=== PATIENT | female | born 1995 | race Caucasian/White ===

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

== ENCOUNTER 2017-03-23 14:55 | Emergency (ER) | payer OTHER ==
[~2017-03-23] VITALS: Ht 165.1 cm; Wt 74.1 kg
[~2017-03-23 14:55] MED LIST changes: +DIPH25CA65 PO
[2017-03-23 14:58] VITALS: TEMP 36.7; Ht 165.1 cm; Wt 74.1 kg
--- NOTE | 2017-03-23 15:09 | EMERGENCY ROOM VISIT NOTE ---
History Report prepared by Christianne: Shaji Salamanca Under the Supervision of: Dr. Yazan Montgomery M.D. First contact with patient: 15:00 Chief Complaint: KNEEPAIN Stated Complaint: LEG PAIN , BRUISED KNEE History of Present Illness The patient is a 22 year old female who presents to the Emergency Room with complaints of right knee pain that began last night. She rates her pain a 6/10 in severity. At this time, the patient accidently tripped on a stage and fell down. She did not hit her head or lose consciousness. She denies any fevers, chills, numbness, or weakness. She is also experiencing upper leg pain as well. She denies any hip pain, back pain or any other abnormal symptoms. She is able to walk, but it exacerbates her pain. She denies any medical problems. She is currently taking control. She did not take anything for her pain. Source of History: patient, friend Onset: last night Position: knee (right) Symptom Intensity: 6/10 Quality: ache Timing: constant Modifying Factors (Worsening): movement Associated Symptoms: No LOC, No fevers, No chills, No headache, No back pain , No weakness, No numbness Note: She has some upper right leg pain as well. Review of Systems See HPI for pertinent positives & negatives. A total of 10 systems reviewed and were otherwise negative. Past Medical & Surgical Surgical Problems: (1) History of appendectomy Old medical records were reviewed. Nurse's notes were reviewed and I agree with. Family History Diabetes mellitus FH: heart disease FH: lung disease FHx: cancer FHx: gallbladder disease Hypertension Kidney disease Kidney stones Social History Smoking Status: Never Smoker Smokeless Tobacco Use: No Drug Use: none Marital Status: single Housing Status: lives with friends Occupation Status: [employer] student Current/Historical Medications Scheduled Control Pills ( Control Pills), 1 TAB PO DAILY Allergies Coded Allergies: Codeine (Verified Allergy, Mild, Hives, 10/16/16) Hydrocodone (Verified Allergy, Mild, Hives, 10/16/16) Hydromorphone (Verified Allergy, Mild, facial edema, 10/19/16) Tramadol (Verified Allergy, Mild, RASH, 10/18/16) Facial edema Physical Exam Vital Signs Date Time Temp Pulse Resp B/P (MAP) Pulse Ox O2 Delivery O2 Flow Rate FiO2 03/23/17 16:35 80 18 134/83 97 03/23/17 14:58 36.7 88 18 141/95 96 Room Air Physical Exam General: Non-ill appearing young female in no acute distress. HEENT: Normal cephalic atraumatic. Pupils are equal round and reactive to light. Extraocular movements are intact. Oropharynx is pink with moist mucous membranes. No swelling of the mouth lips or tongue. Neck: Supple with a midline trachea. No meningeal signs or stiffness, no JVD or bruits. No Stridor. Chest: Clear to auscultation bilaterally. No wheezes or rhonchi. No increased work of breathing. Heart: regular rate and rhythm. Abdomen: Soft nontender, nondistended without rebound guarding or rigidity. Extremities: Bruise to the right patella with focal tenderness. Some tenderness anteriorly in the distal right femur. No cyanosis clubbing or edema. No calf tenderness or assymetry Spine/Back. Non tender to palpation. No CVA tenderness Skin: Good turgor without rashes. Neurologic exam: Cranial nerves two through 12 are intact. Motor and sensation are intact and symmetrical throughout. Medical Decision & Procedures ER Provider Diagnostic Interpretation: Radiology results as stated below per my review and radiologist interpretation: KNEE 3 VIEWS CLINICAL HISTORY: Right knee pain following injury. Evaluate for patellar fracture. COMPARISON: None FINDINGS: Alignment of the right knee is anatomic. There is no acute fracture or joint effusion of the right knee. Patella is intact. Joint spaces are preserved. IMPRESSION: No acute fracture or joint effusion of the right knee. No patellar fracture. Electronically signed by: Jonas Nguyen M.D. 03/23/2017 3:58 PM Dictated Date/Time: 03/23/2017 3:57 PM ED Course 1500: Past medical records reviewed. The patient was evaluated in room D6, and a complete history and physical examination were performed. 1630: Upon reevaluation, the patient is resting. I discussed the results and treatment plan with her. She verbalized agreement of the treatment plan. The patient was discharged home. Medical Decision Differentials include, but are not limited to; fracture, contusion, ligamentous injury, or bruise. This patient comes in after injuring her right knee. She has a bruise . She has full range of motion clinically. She has nothing to suggest significant ligamentous injury. She is able ambulate with some pain . She's not taken anything for pain yet. She is neurologically and neurovascularly intact. there are no other injuries. She did not hit her head. There is no syncope. X-rays do not show any fracture or dislocation. She was given an Arsalan wrap. She has no instability of the knee. She will use and NSAIDs and rest ice and elevate return if increasing pain, worsening symptoms, any new problems concerns. She is happy the plan and discharged home. Medication Reconcilliation Current Medication List: was personally reviewed by me Blood Pressure Screening Patient's blood pressure: Elevated blood pressure Blood pressure disposition: Elevated BP felt to be situational Impression Primary Impression: Contusion of right knee Scribe Attestation The scribe's documentation has been prepared under my direction and personally reviewed by me in its entirety. I confirm that the note above accurately reflects all work, treatment, procedures, and medical decision making performed by me. Departure Information Dispostion Home / Self-Care Referrals No Doctor, Assigned (PCP) Forms HOME CARE DOCUMENTATION FORM, IMPORTANT VISIT INFORMATION Patient Instructions My [facility] Additional Instructions Rest Drink plenty of fluids Use Ibuprofen 400 mg every 6 hours as needed. Take with food Return if: Increasing pain, worsening of symptoms, numbness or weakness, any new problems or concerns. Follow-up with your doctor or the [facility] in 2 days if not better Problem Qualifiers Primary Impression: Contusion of right knee Encounter type: initial encounter Qualified Codes: S80.01XA - Contusion of right knee, initial encounter
--- NOTE | 2017-03-23 15:59 | DIAGNOSTIC IMAGING REPORT ---
KNEE 3 VIEWS CLINICAL HISTORY: Right knee pain following injury. Evaluate for patellar fracture. COMPARISON: None FINDINGS: Alignment of the right knee is anatomic. There is no acute fracture or joint effusion of the right knee. Patella is intact. Joint spaces are preserved. IMPRESSION: No acute fracture or joint effusion of the right knee. No patellar fracture. Electronically signed by: Jonas Nguyen M.D. 03/23/2017 3:58 PM Dictated Date/Time: 03/23/2017 3:57 PM
[2017-03-23 16:35] VITALS: BP 134/83; PULSE 80; O2SAT 97
[2017-03-23] MEDS ORDERED: BCPILLS PO (21:35)
== END 2017-03-23 16:35 | disposition home or self-care (01) ==
LOC: C.EDB 14:57 → C.EDD 16:35
DX: S80.01XA Contusion of right knee, initial encounter (principal); W19.XXXA Unspecified fall, initial encounter; Z83.3 Family history of diabetes mellitus; Z82.49 Family history of ischemic heart disease and other diseases of the circulatory system

== ENCOUNTER → 2017-08-11 | Day surgery (SDC) | payer OTHER ==
[2017-08-10 11:46] VITALS: Ht 162.6 cm; Wt 68.2 kg
[~2017-08-11] VITALS: Ht 162.6 cm; Wt 68.2 kg
[~2017-08-11] MED LIST changes: +BCPILLS PO; -DIPH25CA65 PO; -FRRS300 PO; +LIDOCAINE HCL 2% 2 ML VIAL (20MG/ML) ONE; +MIDAZOLAM HCL 1 MG/ML 2ML VIAL ONE; +PROPOFOL IV EMULSION 10 MG/ML 20 ML VIAL IV ONE; +SODIUM CHLORIDE 0.9% 500ML 500 ML IV ONE; +VNTHFA/IN INH
--- NOTE | 2017-08-11 13:52 | Endo History and Physical ---
History & Physical Date of Service: Aug 11, 2017. Chief Complaint: DYSPHAGIA Referring Physician: [facility] History of Present Illness 22 yo CF who presents for EGD secondary to esophageal dysphagia. Past Surgical History Hx Cardiac Surgery: No Hx Internal Defibrillator: No Hx Pacemaker: No Hx Abdominal Surgery: Yes (APPY) Hx of Implantable Prosthesis: No Hx Post-Op Nausea and Vomiting: No Hx Cancer Surgery: No Hx Thoracic Surgery: No Hx Orthopedic: No Hx Urinary Tract Surgery: No Family History None Social History Smoking Status: Never Smoker Hx Substance Use: No Hx Alcohol Use: Yes (OCCASIONAL/SOCIAL) Allergies Coded Allergies: Morphine (Verified Allergy, Intermediate, FACIAL EDEMA, 08/11/17) Codeine (Verified Allergy, Mild, Hives, 08/11/17) Hydrocodone (Verified Allergy, Mild, Hives, 08/11/17) Hydromorphone (Verified Allergy, Mild, facial edema, 08/11/17) Tramadol (Verified Allergy, Mild, RASH, 08/11/17) Facial edema Current Medications Reported Home Medications Medications Dose Route/Sig Max Daily Dose Days Date Category Ventolin Hfa (Albuterol) 200 Puffs/62114 Mcg Aers 2-4 Puffs INH Q6H PRN 08/10/17 Reported Control Pills (Miscellaneous) Tab 1 Tab PO QAM 08/30/16 Reported Vital Signs Weight (Kilograms): 68.18 Height (Feet): 5 Height (Inches): 4 Date Time Temp Pulse Resp B/P (MAP) Pulse Ox O2 Delivery O2 Flow Rate FiO2 08/11/17 13:27 36.8 70 20 159/82 (107) 96 Room Air Physical Exam General Appearance: WD/WN, no apparent distress Respiratory/Chest: Auscultation: breath sounds normal Cardiovascular: Heart Auscultation: RRR Abdomen: Bowel Sounds: normal Inspection & Palpation: soft, non-distended, no tenderness, guarding & rebound Assessment and Plan Assessment: 22 yo CF who presents for EGD secondary to esophageal dysphagia. Plan: Proceed with EGD.
--- NOTE | 2017-08-11 14:13 | Discharge Instructions ---
Endoscopy Patient Instructions Date / Procedure(s) Performed Aug 11, 2017. EGD Allergy Information Coded Allergies: Morphine (Verified Allergy, Intermediate, FACIAL EDEMA, 08/11/17) Codeine (Verified Allergy, Mild, Hives, 08/11/17) Hydrocodone (Verified Allergy, Mild, Hives, 08/11/17) Hydromorphone (Verified Allergy, Mild, facial edema, 08/11/17) Tramadol (Verified Allergy, Mild, RASH, 08/11/17) Facial edema Discharge Date / Findings Aug 11, 2017. Esophageal dilation to 20mm Medication Instructions 1) Start Omeprazole 20mg by mouth each morning 1/2 hour prior to breakfast. 2) OK to resume all medications today as prescribed Reported Home Medications Medications Dose Route/Sig Max Daily Dose Days Date Category Ventolin Hfa (Albuterol) 200 Puffs/25995 Mcg Aers 2-4 Puffs INH Q6H PRN 08/10/17 Reported Control Pills (Miscellaneous) Tab 1 Tab PO QAM 08/30/16 Reported Provider Instructions Activity Restrictions - No exercising or heavy lifting for 24 hours. - Do not drink alcohol the day of the procedure. - Do not drive a car or operate machinery until the day after the procedure. - Do not make any important decisions or sign important papers in 24 hours after the procedure. Following Day: - Return to full activity which may include returning to work/school. Diet Start your diet with liquids and light foods (jello, soup, juice, toast). Then eat your usual diet if not nauseated. Treatment For Common After Affects For mild abdominal pain, bloating, or excessive gas: - Rest - Eat lightly - Lie on right side Follow-Up Information Follow-up with [facility] as scheduled Anesthesia Information What You Should Know You have had a procedure that required some medicine to reduce anxiety and discomfort. This treatment is called moderate sedation. After receiving the treatment, you may be sleepy, but you will be able to breathe on your own. The effects of the treatment may last for several hours. Follow these instructions along with Activity/Diet recommendations noted above: * Do NOT do anything where dizziness or clumsiness would be dangerous. * Rest quietly at home today, then you can be up and about tomorrow. * Have a responsible person stay with you the rest of today. * You may have had an I.V. today. If so, you may take the dressing off later today. Recommendations Call your doctor if: * Trouble breathing * Continuous vomiting for more than 24 hours * Temperature above 101 degrees * Severe abdominal pain or bloating * Pain not relieved by pain medicine ordered * There is increased drainage or redness from any incision * A large amount of rectal bleeding greater than 2-3 tablespoons. (If you had a polyp/s removed or have hemorrhoids, a small amount of blood - from the rectum is to be expected.) * You have any unanswered questions or concerns. IN THE EVENT OF A SERIOUS EMERGENCY, GO TO THE NEAREST EMERGENCY ROOM Your discharge instructions were prepared by provider Chito Carrillo. Patient Instructions Signature Page Hilario Sanderson Patient (or Guardian) Signature/Date: I have read and understand the instructions given to me by my caregivers. Caregiver/RN/Doctor Signature/Date: The above-named patient and/or guardian has received patient instructions on this date. + Original Patient Signature Page (only) stays with chart. Please make copy for patient.
--- NOTE | 2017-08-11 14:20 | GI REPORT ---
Procedure Date: 08/11/2017 1:51 PM Procedure: Upper GI endoscopy Indications: Dysphagia Medicines: Monitored Anesthesia Care Complications: No immediate complications. Estimated Blood Loss: Estimated blood loss: none. Procedure: Pre-Anesthesia Assessment: - Prior to the procedure, a History and Physical was performed, and patient medications and allergies were reviewed. The patient's tolerance of previous anesthesia was also reviewed. The risks and benefits of the procedure and the sedation options and risks were discussed with the patient. All questions were answered, and informed consent was obtained. Prior Anticoagulants: The patient has taken no previous anticoagulant or antiplatelet agents. ASA Grade Assessment: II - A patient with mild systemic disease. After reviewing the risks and benefits, the patient was deemed in satisfactory condition to undergo the procedure. After obtaining informed consent, the endoscope was passed under direct vision. Throughout the procedure, the patient's blood pressure, pulse, and oxygen saturations were monitored continuously. The Scope was introduced through the mouth, and advanced to the second part of duodenum. The upper GI endoscopy was accomplished without difficulty. The patient tolerated the procedure well. Findings: No endoscopic abnormality was evident in the esophagus to explain the patient's complaint of dysphagia. A TTS dilator was passed through the scope. Dilation with an 18-19-20 mm balloon dilator was performed to 20 mm. The dilation site was examined and showed no change. The stomach was normal. The examined duodenum was normal. Impression: - No endoscopic esophageal abnormality to explain patient's dysphagia. Dilated. - Normal stomach. - Normal examined duodenum. - No specimens collected. Recommendation: - Resume previous diet. - Continue present medications. - Return to GI office as previously scheduled. Chito Carrillo, 08/11/2017 2:20:10 PM This report has been signed electronically. Note Initiated On: 08/11/2017 1:51 PM I attest to the content of the Intraoperative Record and orders documented therein, exceptions below
[2017-08-11 14:47] VITALS: BP 125/92; PULSE 64; O2SAT 99
--- NOTE | 2017-08-11 14:48 | Anesthesiology Progress Note ---
Anesthesia Post Op Note Date & Time Aug 11, 2017 at 14:47 Vital Signs Pain Intensity: 0 Vital Signs Past 12 Hours Date Time Temp Pulse Resp B/P (MAP) Pulse Ox O2 Delivery O2 Flow Rate FiO2 08/11/17 14:29 75 20 115/94 (101) 97 Room Air 08/11/17 14:14 70 16 115/82 (93) 96 Room Air 08/11/17 13:27 36.8 70 20 159/82 (107) 96 Room Air Notes Mental Status: alert / awake / arousable, participated in evaluation Pt Amnestic to Procedure: Yes Nausea / Vomiting: adequately controlled Pain: adequately controlled Airway Patency, RR, SpO2: stable & adequate BP & HR: stable & adequate Hydration State: stable & adequate Anesthetic Complications: no major complications apparent
== END | disposition home or self-care (01) ==
LOC: C.GI 13:07
PROVIDERS: ATTEND Internal Medicine
DX: R13.10 Dysphagia, unspecified (principal); Z88.6 Allergy status to analgesic agent; Z79.3 Long term (current) use of hormonal contraceptives; Z90.89 Acquired absence of other organs